=== PATIENT | female | born 1960 | race Caucasian/White ===

== ENCOUNTER 2024-09-01 20:26 | Observation (INO) ==
[2024-09-01] MEDS ORDERED: Dextrose 50% Syringe 50 ml 25 GM/50 ML SYRINGE IV PUSH PRN (21:22)
[2024-09-01] MEDS ORDERED: Albuterol/Ipratropium NEB.SOL (2.5/0.5 MG) 3 ML NEB.SOLN INH PRN (21:22)
[2024-09-01 21:27] LABS: Hematocrit 40.6 % (35-45); Hemoglobin 13.5 g/dL (11.5-14.3); Mean Corpuscular Hemoglobin 31.3 pg (27-33); Mean Corpuscular Hgb Conc 33.4 g/dL (31-36); Mean Corpuscular Volume 93.7 fL (80-97); Mean Platelet Volume 8.6 fL (7.5-11.2); Platelet Count 258 10^3/uL (150-450); Red Blood Count 4.33 10^6/uL (3.63-4.92); Red Cell Distribution Width 15.5 % (12-17); White Blood Count 11.6 10^3/uL (3.8-11.8)
[2024-09-01 21:57] LABS: RBC Morphology Normal (Normal)
[2024-09-01 21:58] LABS: ABS Lymphocytes 0.9 10^3/uL (1.0-4.8); ABS Monocytes 0.2 10^3/uL (0.0-0.9); ABS Neutrophils 10.6 10^3/uL (1.5-7.6); ABS Nucleated RBC 0.01 10^3/ul; Lymphocyte % 7.4 %; Nucleated Red Blood Cells % 0.1 %/100WBC (0.0-0.8)
[2024-09-01 22:17] LABS: Albumin 4.2 g/dL (3.5-5.7); Albumin/Globulin Ratio 1.8 (1-3); Creatinine, Serum 0.77 mg/dL (0.51-0.95); Globulin 2.3 g/dL (2-4); Magnesium 1.7 mg/dL (1.9-2.7); Potassium 4.3 mmol/L (3.5-5.0); Total Bilirubin 0.4 mg/dL (0.2-1.0); Total Protein 6.5 g/dL (6.4-8.9); eGFR CKD-EPI 87.2 (>60)
[2024-09-01] MEDS ORDERED: Sulfur Hexaflouride MICROSPHR 25 MG VIAL IV PRN (22:19)
[2024-09-01] MEDS ORDERED: Senna TAB 8.6 mg TAB PO PRN (22:23)
[2024-09-01] MEDS ORDERED: Magnesium Hydroxide LIQ 30 ML UDC PO PRN (22:23)
[2024-09-01] MEDS: Albuterol/Ipratropium NEB.SOL (2.5/0.5 MG) 3 ML NEB.SOLN INH SCH (22:30)
[2024-09-01] MEDS: Nicotine PATCH 14 MG/24 HR PATCH TRANSDERM SCH (23:07)
[2024-09-01] MEDS: Enoxaparin 40 MG/0.4 ML SYR SUBCUT SCH (23:09)
[2024-09-01] MEDS: Morphine 4 MG/ML VIAL (1 ml) IV PRN (23:53)
[2024-09-01] MEDS: Furosemide 40 mg/4 ml IV VIAL IV SLOW PU ONE (23:53)
[2024-09-02] MEDS ORDERED: Albuterol/Ipratropium NEB.SOL (2.5/0.5 MG) 3 ML NEB.SOLN INH PRN (00:06)
[2024-09-02] MEDS: Azithromycin 500 mg/250 ml NS 500 MG/250 ML BAG IVPB SCH (00:52)
[2024-09-02 06:24] LABS: Hematocrit 39.4 % (35-45); Hemoglobin 13.4 g/dL (11.5-14.3); Mean Corpuscular Hemoglobin 31.4 pg (27-33); Mean Corpuscular Volume 92.4 fL (80-97); Mean Platelet Volume 8.4 fL (7.5-11.2); Platelet Count 260 10^3/uL (150-450); Red Blood Count 4.26 10^6/uL (3.63-4.92); Red Cell Distribution Width 14.7 % (12-17); White Blood Count 12.9 10^3/uL (3.8-11.8)
[2024-09-02 06:51] LABS: Calcium 9.1 mg/dL (8.6-10.3); Creatinine, Serum 0.67 mg/dL (0.51-0.95); Magnesium 2.2 mg/dL (1.9-2.7); Potassium 4.1 mmol/L (3.5-5.0); eGFR CKD-EPI 98.8 (>60)
[2024-09-02 07:43] LABS: ABS Lymphocytes 1.3 10^3/uL (1.0-4.8); ABS Monocytes 0.6 10^3/uL (0.0-0.9); ABS Neutrophils 10.9 10^3/uL (1.5-7.6); Eosinophil % 0.1 %; Lymphocyte % 10.4 %; RBC Morphology Normal (Normal)
[2024-09-02 07:48] LABS: C Reactive Protein 9.13 mg/L (<8.01)
[2024-09-02] MEDS: Albuterol/Ipratropium NEB.SOL (2.5/0.5 MG) 3 ML NEB.SOLN INH SCH (08:05)
[2024-09-02] MEDS: Morphine 4 MG/ML VIAL (1 ml) IV PRN (08:57)
[2024-09-02] MEDS ORDERED: methylPREDNISolone SOD SUCC 40 mg/ml 1 ml VIAL IV SCH (09:00)
[2024-09-02] MEDS ORDERED: Cholecalciferol (VIT D3) 1,000 unit TAB PO SCH (09:00)
[2024-09-02] MEDS: Polyethylene Glycol 3350 17 GM PACKET PO SCH (09:02)
[2024-09-02] MEDS: Cholecalciferol (VIT D3) 1,000 unit TAB PO SCH (10:08)
[2024-09-02] MEDS: Fluticasone NASAL SPRAY 50MCG 16 gm SPRAY BTL INTRANASAL SCH (10:10)
[2024-09-02] MEDS: Sulfamethox/Trimethoprim SS TAB 400/80 mg PO SCH (10:28)
[2024-09-02] MEDS: oxyCODONE/Acetamin 5/325 mg TAB PO PRN (14:15)
[2024-09-02] MEDS ORDERED: PTO: Albuterol HFA INHALER 8 gm MDI INH PRN (16:04)
[2024-09-02] MEDS: methylPREDNISolone SOD SUCC 40 mg/ml 1 ml VIAL IV SCH (19:11)
[2024-09-02] MEDS: Morphine 2 MG/ML SYRINGE IV PRN (21:13)
[2024-09-03 06:09] LABS: ABS Lymphocytes 1.7 10^3/uL (1.0-4.8); ABS Monocytes 0.9 10^3/uL (0.0-0.9); ABS Neutrophils 13.6 10^3/uL (1.5-7.6); Hematocrit 37.1 % (35-45); Hemoglobin 12.2 g/dL (11.5-14.3); Lymphocyte % 10.6 %; Mean Corpuscular Hemoglobin 30.8 pg (27-33); Mean Corpuscular Volume 93.2 fL (80-97); Mean Platelet Volume 8.7 fL (7.5-11.2); Platelet Count 249 10^3/uL (150-450); Red Blood Count 3.98 10^6/uL (3.63-4.92); Red Cell Distribution Width 14.8 % (12-17); White Blood Count 16.2 10^3/uL (3.8-11.8)
[2024-09-03 06:31] LABS: Calcium 9.1 mg/dL (8.6-10.3); Creatinine, Serum 0.61 mg/dL (0.51-0.95); Magnesium 2.1 mg/dL (1.9-2.7); Potassium 4.3 mmol/L (3.5-5.0)
[2024-09-03 10:39] VITALS: BP 142/77
[2024-09-03] MEDS: oxyCODONE/Acetamin 5/325 mg TAB PO PRN (13:53)
[2024-09-03] MEDS: Albuterol/Ipratropium NEB.SOL (2.5/0.5 MG) 3 ML NEB.SOLN INH SCH (13:54)
== END 2024-09-03 14:15 | disposition home or self-care (01) ==
LOC: MED 20:26 → SUATTDRO 20:26 → INTOOBSV 20:26
PROVIDERS: ADMIT Physician Assistant; ATTEND Internal Medicine